=== PATIENT | female | born 1970 | race Caucasian/White ===

== ENCOUNTER 2017-11-01 01:37 | Emergency (ER) | payer OTHER ==
[~2017-11-01] VITALS: Ht 160 cm; Wt 108.0 kg
[2017-11-01 01:48] VITALS: Ht 160 cm; Wt 108.0 kg
[2017-11-01 06:54] LABS: CARBON DIOXIDE 31.1 mmol/L (21-32); CHLORIDE SERUM 98 mmol/L (98-107); CREATININE SERUM 0.6 mg/dL (0.6-1.0); GFR1 > 60 mL/min; GLUCOSE SERUM 237 mg/dL (74-106); POTASSIUM SERUM 3.7 mmol/L (3.5-5.1); SODIUM SERUM 135 mmol/L (136-145)
[2017-11-01 06:59] LABS: ALKALINE PHOSPHATASE 138 U/L (46-116); ALT/SGPT 63 U/L (14-59); AST/SGOT 91 U/L (15-37); BILIRUBIN TOTAL 0.3 mg/dL (0.20-1.00); TOTAL PROTEIN, SERUM 7.4 g/dL (6.4-8.2)
[2017-11-01 07:02] LABS: ALBUMIN 3.1 g/dL (3.4-5.0); BASOPHIL % 0.4 % (0-2); PLATELET COUNT 327 x10^3mcL (130-400)
[2017-11-01 07:08] LABS: RED CELL DISTRIBUTION WIDTH 17.7 % (11.5-14.5)
[2017-11-01 07:09] LABS: rbc morphology (normal/abnorm) ABNORMAL (NORMAL)
[2017-11-01 11:16] VITALS: BP 128/72
== END 2017-11-01 11:14 | disposition home or self-care (01) ==
LOC: ED 01:37
PROVIDERS: Emergency Medicine
DX: R07.9 Chest pain, unspecified (principal); I10 Essential (primary) hypertension; E11.9 Type 2 diabetes mellitus without complications
CPT/HCPCS: 36415; 83880; Q0092